=== PATIENT | male | born 2000 | race Caucasian/White ===

== ENCOUNTER 2018-08-06 09:52 | Inpatient (IN) | payer OTHER ==
[2018-08-06] MEDS ORDERED: SODIUM CHLORIDE 1,000 ML IV STA (09:59)
--- NOTE | 2018-08-06 10:10 | PDOC ---
History of Present Illness - General History Source: Patient Exam Limitations: No Limitations <Delphine Ríos - Last Filed: 08/06/18 12:09> - General History Source: Patient Exam Limitations: No Limitations <Amy Alvarado - Last Filed: 08/06/18 13:45> - General Chief Complaint: Chest Pain Stated Complaint: CHEST PAIN Time Seen by Provider: 08/06/18 09:54 - History of Present Illness Initial Comments: 08/06/18 11:05 Mr. Emanuel Metz is a 18-year-old male with past medical history significant for childhood asthma, and pilonidal cys presents to the emergency department from urgent care with chest pain and abnormal EKG. The patient reports he woke up today morning with chest pressure, describes the pain as if someone is sitting on his chest. He has been experiencing chills and sweats, mild headache , generalized malaise x 3 days, but no fevers. No cough or congestion, cough or sob, AP, n/v/d or urinary sx, rash, back pain or myalgias. He saw his PCP earlier this week, dxd with flu-like illness. Denies sick contact or travel history. Allergies: NKA Social history: No past or present use of tobacco, alcohol or recreational drug use reported. Surgical history: No surgical history reported. PCP: Dr. Sal Bonilla. (Delphine Ríos) Past History <Delphine Ríos - Last Filed: 08/06/18 12:09> <Amy Alvarado - Last Filed: 08/06/18 13:45> - Past Medical History Allergies/Adverse Reactions: Allergies Allergy/AdvReac Type Severity Reaction Status Date / Time No Known Allergies Allergy Verified 08/06/18 11:11 Home Medications: Ambulatory Orders NK [No Known Home Medication] 08/06/18 Review of Systems - Review of Systems Able to Perform ROS?: Yes <Delphine Ríos - Last Filed: 08/06/18 12:09> <Amy Alvarado - Last Filed: 08/06/18 13:45> - Review of Systems Comments:: 08/06/18 11:05 GENERAL/CONSTITUTIONAL: + Chills and diaphoresis. +malaise HEAD, EYES, EARS, NOSE AND THROAT: No change in vision or hearing. No ear pain or discharge. No sore throat or mouth pain. No difficulty swallowing. No congestion. CARDIOVASCULAR: + chest pain. No palpitations, syncope or edema. RESPIRATORY: No SOB, cough, wheezing, or hemoptysis. GASTROINTESTINAL No nausea/vomiting. No diarrhea or constipation. No bloody stools. GENITOURINARY: No hematuria, dysuria, frequency, urgency or other changes. MUSCULOSKELETAL: No joint or muscle swelling or pain. No neck or back pain. SKIN: No rash or changes in skin color or lesions. NEUROLOGIC: +headache. No dizziness, lightheadedness. No vertigo, loss of consciousness, or change in strength/sensation. No gait instability. HEMATOLOGIC/LYMPHATIC: No anemia, easy bruising/bleeding, or history of blood clots. ALLERGIC/IMMUNOLOGIC: No allergies All other systems reviewed and negative, or as documented in HPI. (Delphine Ríos) *Physical Exam <Delphine Ríos - Last Filed: 08/06/18 12:09> <Amy Alvarado - Last Filed: 08/06/18 13:45> - Vital Signs Last Vital Signs Temp Pulse Resp BP Pulse Ox 100.4 F H 92 H 12 110/63 100 08/06/18 11:04 08/06/18 11:04 08/06/18 11:04 08/06/18 11:04 08/06/18 11:04 - Physical Exam Comments: 08/06/18 11:06 General: Well appearing, awake and alert, NAD. HEENT: NCAT, PERRL, EOMI, clear conjunctiva, anicteric, moist mucus membranes, clear oropharynx, no oral lesions.. Neck: neck supple, FROM, no meningismus Resp: CTAB, normal and even respirations, no respiratory distress CVS: + Tachycardia. no murmurs,, no peripheral edema Abdomen: soft, NTND, no peritoneal signs. Back: nontender, normal inspection and ROM MSK: no edema, ROMERO x4, ROM intact. No clubbing or cyanosis. normal bulk and tone. Neuro: alert, oriented appropriately; no focal neurologic deficits Skin: + Pale and cool, diaphoretic, no rash. (Delphine Ríos) Heart Score/ECG Review <Delphine Ríos - Last Filed: 08/06/18 12:09> - ECG Impressions Normal ECG: No Non-specific ST Elevation: Yes Ischemic Changes: Yes <Amy Alvarado - Last Filed: 08/06/18 13:45> - ECG Impressions Comment:: 08/06/18 12:13 EKG normal sinus rhythm, no interval abnormalities, narrow QRS, +PA depressions diffusely when comparing with TP segment and diffuse upsloping ST segments 1mm. suggestive of acute pericarditis (Amy Alvarado) Procedures <Delphine Ríos - Last Filed: 08/06/18 12:09> - Bedside Ultrasound Bedside Ultrasound: Cardiac <Amy Alvarado - Last Filed: 08/06/18 13:45> - Bedside Ultrasound Remarks: 08/06/18 12:18 POCUS echo performed, indication includes chest pain. views obtained (PSLA, PSS , A4, SX, IVC). Findings include normal EF, no pericardial effusion, no FWMA, normal IVC with no inspiratory collapse Normal aortic root <4cm. RV<LV. Impression: no acute findings (Amy Alvarado) ED Treatment Course - LABORATORY CBC & Chemistry Diagram: 08/06/18 10:30 08/06/18 10:30 <Delphine Ríos - Last Filed: 08/06/18 12:09> - LABORATORY CBC & Chemistry Diagram: 08/06/18 10:30 08/06/18 10:30 <Amy Alvarado - Last Filed: 08/06/18 13:45> - ADDITIONAL ORDERS Additional order review: Laboratory Results 08/06/18 08/06/18 08/06/18 11:15 10:30 10:30 PT with INR 13.20 H INR 1.12 H Sodium 140 Potassium 4.1 Chloride 106 Carbon Dioxide 29 Anion Gap 6 L BUN 15 Creatinine 0.8 Creat Clearance w eGFR > 60 Random Glucose 90 Lactic Acid 0.9 Calcium 8.8 Magnesium 2.2 Total Bilirubin 0.7 AST 78 H ALT 61 Alkaline Phosphatase 88 Creatine Kinase 798 H Creatine Kinase Index 10.1 H* CK-MB (CK-2) 81.1 H Troponin I 15.10 H* B-Natriuretic Peptide 896.0 H Total Protein 7.8 Albumin 4.1 08/06/18 10:30 RBC 5.22 MCV 83.4 MCHC 33.2 RDW 13.4 MPV 7.9 Neutrophils % 83.3 H Lymphocytes % 8.3 Monocytes % 7.8 Eosinophils % 0.1 Basophils % 0.5 - RADIOLOGY Radiology Studies Ordered: Category Date Time Status CHEST PA & LAT [RAD] Stat Radiology 08/06/18 09:59 Completed - Medications Given in the ED: ED Medications Discontinued Medications Generic Name Dose Route Start Last Admin Trade Name Angel PRN Reason Stop Dose Admin Acetaminophen 1,000 mg 08/06/18 11:11 08/06/18 11:26 Ofirmev Injection - IVPB 08/06/18 11:12 1,000 mg ONCE ONE Administration Sodium Chloride 1,000 mls @ 1,000 mls/hr 08/06/18 09:59 08/06/18 11:59 Normal Saline - IV 08/06/18 10:58 1,000 mls/hr ASDIR STA Administration Sodium Chloride 1,000 ml 08/06/18 10:11 08/06/18 12:10 Normal Saline - IV 08/06/18 10:12 1,000 ml ONCE ONE Administration Medical Decision Making <Delphine Ríos - Last Filed: 08/06/18 12:09> <Amy Alvarado - Last Filed: 08/06/18 13:45> - Medical Decision Making 08/06/18 12:[address] Hernandez for admission. Case discussed with Dr. Hernandez. 08/06/18 12:09 Call placed [facility] at 11:50, waiting for a call back from Dr. Molina. Case discussed with Dr. Molina at 11:57 (Delphine Ríos) 08/06/18 11:12 DDx chest pain: ACS, PE, dissection,costochondritis, pneumonia, pleurisy, pericarditis/myocarditis, pericardial effusion. dehydration, electrolyte/ metabolic derangements. influenza, viral syndrome. Vital signs reviewed, +fever and tachycardia. laboratory results and imaging reviewed, basic labs and lytes wnl, notable for leukocytosis of 13K, normal lytes and coags. blood cultures sent. however, defer abx as most likely viral etiology. flu negative. Lactic normal, reassuring. CXR_neg for infection or edema. Cardiac panel with significantly elevated troponin to 15, elevated CK ( nonspecific), and BNP >800s, with EKG suggesting acute pericarditis; ASA administered [employer] at urgent care. EKG normal sinus rhythm, no interval abnormalities, narrow QRS, +PA depressions diffusely when comparing with TP segment and diffuse upsloping ST segments. Heart visualized in four views using phased array probe ( sub-xiphoid, Parasternal long and short, and apical). no pericardial effusion, normal EF, RV< LV, plump IVC and normal aortic root. ED course: no acute events, remained stable. Clinically improved after interventions, including 2 liters IVF and tylenol. on reeval at 12pm, chest pain free. Cardiology consultation with Dr. Nicole/[facility] for concerns of acute myopericarditis. spoke with Dr Gonzalez for consultation, agree to plan. Dispo: Dr. Hernandez called for admission Admit for acute myopericarditis.. Discussed results and management plan with pt and family member at bedside, agree with impression and plan 08/06/18 13:45 (Amy Alvarado) *DC/Admit/Observation/Transfer <Delphine Ríos - Last Filed: 08/06/18 12:09> - Discharge Dispostion Decision to Admit order: Yes <Amy Alvarado - Last Filed: 08/06/18 13:45> Diagnosis at time of Disposition: Myopericarditis - Discharge Dispostion Condition at time of disposition: Guarded - Attestations Scribe Attestion: 08/06/18 11:06 Documentation prepared by Delphine Ríos, acting as medical pathology teacher for Amy Alvarado MD. (Delphine Ríos) Physician Attestion: 08/06/18 13:13 I, Amy Alvarado MD, attest that this document has been prepared under my direction and personally reviewed by me in its entirety. I further attest, that it accurately reflects all work, treatment, procedures and medical decision -making performed by me. (Amy Alvarado)
[2018-08-06] MEDS ORDERED: SODIUM CHLORIDE 0.9% 500 ML INFUS.BAG IV ONE (10:11)
[2018-08-06 10:46] LABS: BASO % 0.5 % (0-2.0); EOS % 0.1 % (0-4.5); HEMATOCRIT 43.6 % (35.4-49); HEMOGLOBIN 14.5 GM/dL (11.7-16.9); LYMPH % 8.3 % (8-40); MCH 27.7 pg (25.7-33.7); MCHC 33.2 g/dl (32.0-35.9); MEAN CELL VOLUME 83.4 fl (80-96); MEAN PLT VOLUME 7.9 fl (7.5-11.1); MONO % 7.8 % (3.8-10.2); NEUT % 83.3 % (42.8-82.8); PLATELET COUNT 245 K/MM3 (134-434); RBC 5.22 M/mm3 (4.00-5.60); RDW 13.4 % (11.9-15.9); WHITE BLOOD COUNT 13.8 K/mm3 (4.0-10.0)
[2018-08-06 11:00] LABS: INR 1.12 (0.83-1.09); PROTHROMBIN TIME (PATIENT) 13.2 SEC (9.7-13.0)
[2018-08-06] MEDS ORDERED: ACETAMINOPHEN 1000 MG/100 ML VIAL (NON FORMULARY) IVPB ONE (11:11)
[2018-08-06] MEDS ORDERED: ACETAMINOPHEN INJECTION 100 ML IVPB ONE (11:21)
[2018-08-06 11:31] LABS: ALBUMIN 4.1 g/dl (3.4-5.0); ALK PHOS 88 U/L (45-117); ANION GAP 6 MMOL/L (8-16); BILIRUBIN,TOTAL 0.7 mg/dL (0.2-1); BLOOD UREA NITROGEN 15 mg/dL (7-18); CALCIUM 8.8 mg/dL (8.5-10.1); CHLORIDE 106 mmol/L (98-107); CO2 29 mmol/L (21-32); CREATININE 0.8 mg/dL (0.55-1.3); GLUCOSE,RANDOM 90 mg/dL (74-106); MAGNESIUM 2.2 mg/dL (1.8-2.4); POTASSIUM 4.1 mmol/L (3.5-5.1); SGOT/AST 78 U/L (15-37); SGPT/ALT 61 U/L (13-61); SODIUM 140 mmol/L (136-145); TOT PROT 7.8 g/dl (6.4-8.2)
--- NOTE | 2018-08-06 14:27 | HP ---
Admitting History and Physical - Primary Care Physician PCP: Sal Bonilla - Admission Chief Complaint: I had chest pain History of Present Illness: Mr Metz is a very pleasant 18 year old male who comes in with chest pain. He says he has been feeling fine and is without complaint until this morning around 12:30am. He says he was working on something and fell asleep and woke up with chest pain. He says it was a pressure like pain that was band like in distribution. At first it was a 4/10 but it increased to 10/10. He says it did not radiate. It was a pressure like pain and it was constant. Nothing relieved or exacerbated the pain, positioning did not affect it. Since it did not go away he presented to urgent care, an EKG was performed and he was sent here for EKG changes. Currently he says the pain resolved after aspirin and nitroglycerin. He says he was diaphoretic over the past two days. He denies fevers, chills, lightheadedness, dizziness, passing out, palpitations, fluttering, shortness of breath, coughing, abdominal pain, nausea, vomiting, diarrhea, constipation, or swelling. He says his boss had a cold 2 weeks ago but he does not feel like he caught it. He did not have injury to the area. History Source: Patient Limitations to Obtaining History: No Limitations - Past Medical History Additional Past Medical History: No past medical history - Past Surgical History Past Surgical History: Yes: None - Smoking History Smoking history: Never smoked Have you smoked in the past 12 months: No - Alcohol/Substance Use Hx Alcohol Use: No History of Substance Use: reports: None - Social History Usual Living Arrangement: Yes: With Parent ADL: Independent History of Recent Travel: No Home Medications - Allergies Allergies/Adverse Reactions: Allergies Allergy/AdvReac Type Severity Reaction Status Date / Time No Known Allergies Allergy Verified 08/06/18 11:11 - Home Medications Home Medications: Ambulatory Orders NK [No Known Home Medication] 08/06/18 Family Disease History - Family Disease History Other Family History: aunt: breast cancer Review of Systems Findings/Remarks: Full review of systems obtained, as per HPI and otherwise negative. Physical Examination Vital Signs: Vital Signs Temperature 38.0 C H 08/06/18 11:04 Pulse Rate 92 H 08/06/18 11:04 Respiratory Rate 12 08/06/18 11:04 Blood Pressure 110/63 08/06/18 11:04 O2 Sat by Pulse Oximetry (%) 100 08/06/18 11:04 Constitutional: Yes: Well Nourished, No Distress, Calm Eyes: Yes: Conjunctiva Clear, EOM Intact, PERRL HENT: Yes: Atraumatic, Normocephalic Cardiovascular: Yes: Regular Rate and Rhythm. No: Gallop, Murmur, Rub Respiratory: Yes: Regular, CTA Bilaterally. No: Rales, Rhonchi, Wheezes Gastrointestinal: Yes: Normal Bowel Sounds, Soft. No: Distention, Tenderness Extremities: Yes: WNL Edema: No Labs: CBC, BMP 08/06/18 10:30 08/06/18 10:30 Imaging - Results Chest X-ray: Report Reviewed, Image Reviewed EKG: Image Reviewed Problem List - Problems (1) Myopericarditis Assessment/Plan: -admit to telemetry -per ER attending, bedside ECHO showed no effusion -will need official ECHO, ordered -EKG c/w pericarditis -troponin of 15 -cardiac enzymes x3 to monitor trend -cardiology consulted and will see -will place on aspirin 650mg q8h and colchicine 0.6mg bid (use aspirin secondary to elevated troponin) -will obtain sexual history and consent for HIV when able to have some privacy with patient Code(s): I31.9 - DISEASE OF PERICARDIUM, UNSPECIFIED (2) Fever Assessment/Plan: -most likely viral -however could be inflammatory with pericarditis -urinalysis ordered -blood and urine cultures ordered -hydration Code(s): R50.9 - FEVER, UNSPECIFIED (3) Leukocytosis Assessment/Plan: -recheck in am -hydration -monitor Code(s): D72.829 - ELEVATED WHITE BLOOD CELL COUNT, UNSPECIFIED
[2018-08-06] MEDS ORDERED: COLCHICINE 0.6 MG TABLET (FP) ONE (15:07)
[2018-08-06] MEDS ORDERED: ASPIRIN 325 MG ENTERIC COATED TABLET (FP) ONE (15:07)
--- NOTE | 2018-08-06 15:17 | EKG ---
Test Reason : Blood Pressure : / mmHG Vent. Rate : 094 BPM Atrial Rate : 094 BPM P-R Int : 146 ms QRS Dur : 084 ms QT Int : 340 ms P-R-T Axes : 044 068 026 degrees QTc Int : 425 ms NORMAL SINUS RHYTHM ST ELEVATION, CONSIDER EARLY REPOLARIZATION, PERICARDITIS, OR INJURY ABNORMAL ECG NO PREVIOUS ECGS AVAILABLE Confirmed by JOI SANCHEZ MD ([id number]) on 08/06/2018 3:16:35 PM Referred By: Confirmed By:JOI SANCHEZ MD
[2018-08-06] MEDS: COLCHICINE 0.6 MG TABLET (FP) PO SCH ×2 (15:19→21:06)
[2018-08-06] MEDS: SODIUM CHLORIDE 1,000 ML IV SCH (15:19)
[2018-08-06] MEDS: ASPIRIN 325 MG ENTERIC COATED TABLET (FP) PO SCH ×2 (15:19→21:06)
--- NOTE | 2018-08-06 16:31 | ECHO ---
Name: GURMEET JUARES Exam:Adult Echocardiogram Study Date: 08/06/2018 02:58 PM Age: 18 yrs Reason For Study: Chest pain Height: 69 in Weight: 190 lb BSA: 2.0 m2 MMode/2D Measurements & Calculations IVSd: 0.90 cm Ao root diam: 2.9 cm LVIDd: 4.7 cm LA dimension: 3.1 cm LVIDs: 3.0 cm ACS: 1.8 cm LVPWd: 0.86 cm IVSs: 1.2 cm LVPWs: 1.1 cm EDV(Teich): 100.2 ml ESV(Teich): 35.9 ml Doppler Measurements & Calculations MV E max herb: 86.9 cm/sec Ao V2 max: 104.7 cm/sec MV A max herb: 57.0 cm/sec Ao max P.4 mmHg MV E/A: 1.5 Ao V2 mean: 79.3 cm/sec Ao mean P.8 mmHg Ao V2 VTI: 20.9 cm MR max herb: 399.6 cm/sec TR max herb: 262.7 cm/sec MR max P.0 mmHg TR max P.7 mmHg Med Peak E' Herb: 8.9 cm/sec Med E/e': 9.8 Lat Peak E' Herb: 12.3 cm/sec Lat E/e': 7.1 Procedure A complete two-dimensional transthoracic echocardiogram was performed (2D, M-mode, Doppler and color flow Doppler). Left Ventricle The left ventricular size, thickness and function are normal. The left ventricular ejection fraction is normal. Left Ventricular Filling pattern is normal for age. The left ventricular wall motion is dean l. Right Ventricle The right ventricle is normal in size and function. Atria Normal left and right atrial size and function. Mitral Valve There is mild mitral valve thickening. There is no mitral valve stenosis. There is moderate mitral regurgitation. Tricuspid Valve There is mild tricuspid valve thickening. There is no tricuspid stenosis. There is trace tricuspid regurgitation. Right ventricular systolic pressure is elevated at 30-40mmHg. Aortic Valve The aortic valve is normal in structure and function. No hemodynamically significant valvular aortic stenosis. No aortic regurgitation is present. Pulmonic Valve The pulmonic valve is not well visualized. There is no pulmonic valvular stenosis. There is no pulmon ic valvular regurgitation. Interpretation Summary A complete two-dimensional transthoracic echocardiogram was performed (2D, M-mode, Doppler and color flow Doppler). The left ventricular size, thickness and function are normal The left ventricular ejection fraction is normal. The left ventricular wall motion is normal. There is moderate mitral regurgitation. Left Ventricular Filling pattern is normal for age. There is trace tricuspid regurgitation. Right ventricular systolic pressure is elevated at 30-40mmHg. MD Ottoniel Wood 08/06/2018 04:31 PM
--- NOTE | 2018-08-06 17:04 | CON.CARD ---
Cardiology Consult (text) - Consultation Consultation Note: cc: cp hpi: 18 m no sig pmhx here with cp. Past few days with flu sxs then last night had chest tightness across chest and this AM came to urgent care and then sent to ER. No sob palps dizzy loc pnd othopnea le edema. CP better now. pmh: per hpi psh: pilonidal cyst removal social: no tob fam: no premature cad, scd ros: per hpi; no nvd, fever, vision changes gib hematuria dysuria meds: none pe: Vital Signs Period Temp Pulse Resp BP Sys/Posey Pulse Ox Last 24 Hr 100.4 F-100.4 F 92 12 110/63 100 nad no jvd rrr s1s2 no mrg cta bl nl eff aaox3 no le e/c/c abd nt nd pos bs no jaundice diaphoresis pos dp pt no carotid bruits Laboratory Last Values WBC 13.8 K/mm3 (4.0-10.0) H 08/06/18 10:30 RBC 5.22 M/mm3 (4.00-5.60) 08/06/18 10:30 Hgb 14.5 GM/dL (11.7-16.9) 08/06/18 10:30 Hct 43.6 % (35.4-49) 08/06/18 10:30 MCV 83.4 fl (80-96) 08/06/18 10:30 MCH 27.7 pg (25.7-33.7) 08/06/18 10:30 MCHC 33.2 g/dl (32.0-35.9) 08/06/18 10:30 RDW 13.4 % (11.9-15.9) 08/06/18 10:30 Plt Count 245 K/MM3 (134-434) 08/06/18 10:30 MPV 7.9 fl (7.5-11.1) 08/06/18 10:30 Absolute Neuts (auto) 11.5 K/mm3 (1.5-8.0) H 08/06/18 10:30 Neutrophils % 83.3 % (42.8-82.8) H 08/06/18 10:30 Lymphocytes % 8.3 % (8-40) 08/06/18 10:30 Monocytes % 7.8 % (3.8-10.2) 08/06/18 10:30 Eosinophils % 0.1 % (0-4.5) 08/06/18 10:30 Basophils % 0.5 % (0-2.0) 08/06/18 10:30 Nucleated RBC % 0 % (0-0) 08/06/18 10:30 PT with INR 13.20 SEC (9.7-13.0) H 08/06/18 10:30 INR 1.12 (0.83-1.09) H 08/06/18 10:30 Sodium 140 mmol/L (136-145) 08/06/18 10:30 Potassium 4.1 mmol/L (3.5-5.1) 08/06/18 10:30 Chloride 106 mmol/L (98-107) 08/06/18 10:30 Carbon Dioxide 29 mmol/L (21-32) 08/06/18 10:30 Anion Gap 6 MMOL/L (8-16) L 08/06/18 10:30 BUN 15 mg/dL (7-18) 08/06/18 10:30 Creatinine 0.8 mg/dL (0.55-1.3) 08/06/18 10:30 Creat Clearance w eGFR > 60 (>60) 08/06/18 10:30 Random Glucose 90 mg/dL (74-106) 08/06/18 10:30 Lactic Acid 0.9 mmol/L (0.4-2.0) 08/06/18 11:15 Calcium 8.8 mg/dL (8.5-10.1) 08/06/18 10:30 Magnesium 2.2 mg/dL (1.8-2.4) 08/06/18 10:30 Total Bilirubin 0.7 mg/dL (0.2-1) 08/06/18 10:30 AST 78 U/L (15-37) H 08/06/18 10:30 ALT 61 U/L (13-61) 08/06/18 10:30 Alkaline Phosphatase 88 U/L (45-117) 08/06/18 10:30 Creatine Kinase 798 IU/L (26-308) H 08/06/18 10:30 Creatine Kinase Index 10.1 % (0.0-5.0) H* 08/06/18 10:30 CK-MB (CK-2) 81.1 ng/mL (0.5-3.6) H 08/06/18 10:30 Troponin I 15.10 ng/ml (0.00-0.05) H* 08/06/18 10:30 B-Natriuretic Peptide 896.0 pg/ml (5-125) H 08/06/18 10:30 Total Protein 7.8 g/dl (6.4-8.2) 08/06/18 10:30 Albumin 4.1 g/dl (3.4-5.0) 08/06/18 10:30 cxr: clear lungs ecg: sr, nl intervals, diffuse st elevations, pr depressions, also pr elevation avr a/p: 18 m no sig pmhx here with cp. cp, myopericarditis: -ecg c/w pericarditis, also with elevated trop c/w myocarditis, likely 2/2 URI -cont asa, colchicine -check echo -tele monitor -trend trops
[2018-08-06 20:53] VITALS: BMI 29.5
[2018-08-07] MEDS: ASPIRIN 325 MG ENTERIC COATED TABLET (FP) PO SCH ×4 (05:43→22:12)
[2018-08-07 07:00] LABS: HEMATOCRIT 38.9 % (35.4-49); HEMOGLOBIN 12.8 GM/dL (11.7-16.9); MCH 27.5 pg (25.7-33.7); MCHC 32.9 g/dl (32.0-35.9); MEAN CELL VOLUME 83.4 fl (80-96); PLATELET COUNT 215 K/MM3 (134-434); RBC 4.66 M/mm3 (4.00-5.60); RDW 13.5 % (11.9-15.9); WHITE BLOOD COUNT 11.2 K/mm3 (4.0-10.0)
[2018-08-07 07:26] LABS: ANION GAP 7 MMOL/L (8-16); BLOOD UREA NITROGEN 11 mg/dL (7-18); CALCIUM 8.3 mg/dL (8.5-10.1); CHLORIDE 110 mmol/L (98-107); CO2 25 mmol/L (21-32); CREATININE 0.6 mg/dL (0.55-1.3); GLUCOSE,RANDOM 87 mg/dL (74-106); MAGNESIUM 2.2 mg/dL (1.8-2.4); PHOSPHOROUS 3.5 mg/dL (2.5-4.9); POTASSIUM 3.9 mmol/L (3.5-5.1); SODIUM 142 mmol/L (136-145)
[2018-08-07] MEDS: PANTOPRAZOLE 40 MG TABLET (FP) PO SCH (09:46)
[2018-08-07] MEDS: COLCHICINE 0.6 MG TABLET (FP) PO SCH ×2 (09:46→22:12)
--- NOTE | 2018-08-07 10:50 | PN ---
Progress Note (short form) - Note Progress Note: s: no cp sob palps dizzy, low grade fever overnight pe: Vital Signs Period Temp Pulse Resp BP Sys/Posey Pulse Ox Last 24 Hr 98.4 F-100.8 F 88-124 12-20 102-122/59-70 98-100 nad no jvd rrr s1s2 no mrg cta bl nl eff aaox3 no le e/c/c abd nt nd pos bs no jaundice diaphoresis Current Medications Generic Name Dose Route Start Last Admin Trade Name Freq PRN Reason Stop Dose Admin Aspirin 650 mg 08/06/18 14:15 08/07/18 05:43 Ecotrin - PO Not Given Q8H RADHA Colchicine 0.6 mg 08/06/18 14:15 08/07/18 09:46 Colcrys - PO 0.6 mg BID RADHA Administration Sodium Chloride 1,000 mls @ 75 mls/hr 08/06/18 14:30 08/06/18 15:19 Normal Saline - IV 75 mls/hr ASDIR RADHA Administration Pantoprazole Sodium 40 mg 08/07/18 10:00 08/07/18 09:46 Protonix - PO 40 mg DAILY RADHA Administration CBC, BMP 08/07/18 06:00 08/07/18 06:00 echo 07/2018: nl lv/rv, mod mr, rvsp 30-40 tele: sr, sinus tachy, 4 beats nsvt cxr: clear lungs ecg: sr, nl intervals, diffuse st elevations, pr depressions, also pr elevation avr a/p: 18 m no sig pmhx here with cp. cp, myopericarditis: -ecg c/w pericarditis, also with elevated trop c/w myocarditis, likely 2/2 viral syndrome -cont asa, colchicine -echo with normal LV, no effusion -trops trending down -infectious w/u ongoing. likely ready for dc tomorrow from cardiac pov
--- NOTE | 2018-08-07 12:28 | PN ---
Progress Note, Physician Chief Complaint: Mr Metz says his pain is almost completely resolved. Denies sob and n/v. - Current Medication List Current Medications: Active Medications Aspirin (Ecotrin -) 650 mg PO Q8H [facility] Last Admin: 08/07/18 05:43 Dose: Not Given Colchicine (Colcrys -) 0.6 mg PO BID [facility] Last Admin: 08/07/18 09:46 Dose: 0.6 mg Sodium Chloride (Normal Saline -) 1,000 mls @ 75 mls/hr IV ASDIR [facility] Last Admin: 08/06/18 15:19 Dose: 75 mls/hr Pantoprazole Sodium (Protonix -) 40 mg PO DAILY [facility] Last Admin: 08/07/18 09:46 Dose: 40 mg - Objective Vital Signs: Vital Signs Temperature 37.0 C 08/07/18 09:51 Pulse Rate 88 08/07/18 09:51 Respiratory Rate 18 08/07/18 09:51 Blood Pressure 121/70 08/07/18 09:51 O2 Sat by Pulse Oximetry (%) 98 08/07/18 09:00 Constitutional: Yes: Well Nourished, No Distress, Calm Cardiovascular: Yes: Regular Rate and Rhythm. No: Gallop, Murmur, Rub Respiratory: Yes: Regular, CTA Bilaterally. No: Rales, Rhonchi, Wheezes Gastrointestinal: Yes: Normal Bowel Sounds, Soft. No: Distention, Tenderness Extremities: Yes: WNL Edema: No Labs: CBC, BMP 08/07/18 06:00 08/07/18 06:00 INR, PTT INR 1.12 (0.83-1.09) H 08/06/18 10:30 Problem List - Problems (1) Myopericarditis Code(s): I31.9 - DISEASE OF PERICARDIUM, UNSPECIFIED (2) Fever Code(s): R50.9 - FEVER, UNSPECIFIED (3) Leukocytosis Code(s): D72.829 - ELEVATED WHITE BLOOD CELL COUNT, UNSPECIFIED Assessment/Plan (1) Myopericarditis Assessment/Plan: -continue aspirin and colchicine -pain almost resolved -case d/w cardiology -patient states he has zero sexual partners and has never used intravenous drugs , zero risk for HIV exposure Code(s): I31.9 - DISEASE OF PERICARDIUM, UNSPECIFIED (2) Fever Assessment/Plan: -resolved Code(s): R50.9 - FEVER, UNSPECIFIED (3) Leukocytosis Assessment/Plan: -improving Code(s): D72.829 - ELEVATED WHITE BLOOD CELL COUNT, UNSPECIFIED Dispo -will allow blood cultures to grow for 48 hours -if NGTD tomorrow and pain free, can discharge home
[2018-08-07] MEDS: SODIUM CHLORIDE 1,000 ML IV SCH (14:04)
[2018-08-07 14:25] LABS: URINE APPEARANCE CLEAR; URINE BILIRUBIN NEGATIVE (<2.0 mg/dL); URINE COLOR YELLOW; URINE GLUCOSE (UA) NEGATIVE (NEGATIVE); URINE KETONE 1+ (NEGATIVE); URINE LEUK ESTERASE NEGATIVE (NEGATIVE); URINE NITRITE NEGATIVE (NEGATIVE); URINE PROTEIN NEGATIVE (NEGATIVE); URINE UROBILINOGEN NEGATIVE mg/dL (0.2-1.0)
[2018-08-08 06:27] LABS: BASO % 0.7 % (0-2.0); EOS % 2.9 % (0-4.5); HEMATOCRIT 37.8 % (35.4-49); HEMOGLOBIN 12.6 GM/dL (11.7-16.9); LYMPH % 37.5 % (8-40); MCH 27.6 pg (25.7-33.7); MCHC 33.3 g/dl (32.0-35.9); MEAN CELL VOLUME 83.1 fl (80-96); MEAN PLT VOLUME 7.9 fl (7.5-11.1); MONO % 8.8 % (3.8-10.2); NEUT % 50.1 % (42.8-82.8); PLATELET COUNT 220 K/MM3 (134-434); RBC 4.55 M/mm3 (4.00-5.60); RDW 13.2 % (11.9-15.9); WHITE BLOOD COUNT 8.3 K/mm3 (4.0-10.0)
[2018-08-08] MEDS: ASPIRIN 325 MG ENTERIC COATED TABLET (FP) PO SCH (06:40)
[2018-08-08 07:40] LABS: ANION GAP 8 MMOL/L (8-16); BLOOD UREA NITROGEN 12 mg/dL (7-18); CALCIUM 8.2 mg/dL (8.5-10.1); CHLORIDE 108 mmol/L (98-107); CO2 25 mmol/L (21-32); CREATININE 0.7 mg/dL (0.55-1.3); GLUCOSE,RANDOM 80 mg/dL (74-106); MAGNESIUM 2.1 mg/dL (1.8-2.4); PHOSPHOROUS 3.6 mg/dL (2.5-4.9); POTASSIUM 4.1 mmol/L (3.5-5.1); SODIUM 141 mmol/L (136-145)
[2018-08-08] MEDS: COLCHICINE 0.6 MG TABLET (FP) PO SCH (09:17)
[2018-08-08] MEDS: PANTOPRAZOLE 40 MG TABLET (FP) PO SCH (09:17)
[2018-08-08 10:46] VITALS: BP 125/83; PULSE 83; TEMP 97.9
--- NOTE | 2018-08-08 11:15 | PN ---
Progress Note (short form) - Note Progress Note: s: no cp sob palps dizzy pe: Vital Signs Period Temp Pulse Resp BP Sys/Posey Pulse Ox Last 24 Hr 97.6 F-98.7 F 80-90 16-18 110-129/65-83 98-99 nad no jvd rrr s1s2 no mrg cta bl nl eff aaox3 no le e/c/c abd nt nd pos bs no jaundice diaphoresis Current Medications Generic Name Dose Route Start Last Admin Trade Name Freq PRN Reason Stop Dose Admin Aspirin 650 mg 08/06/18 14:15 08/08/18 06:40 Ecotrin - PO 650 mg Q8H RADHA Administration Colchicine 0.6 mg 08/06/18 14:15 08/08/18 09:17 Colcrys - PO 0.6 mg BID RADHA Administration Sodium Chloride 1,000 mls @ 75 mls/hr 08/06/18 14:30 08/07/18 14:04 Normal Saline - IV 75 mls/hr ASDIR RADHA Administration Pantoprazole Sodium 40 mg 08/07/18 10:00 08/08/18 09:17 Protonix - PO 40 mg DAILY RADHA Administration CBC, BMP 08/08/18 06:00 08/08/18 06:00 echo 07/2018: nl lv/rv, mod mr, rvsp 30-40 tele: sr, sinus tachy, 4 beats nsvt cxr: clear lungs ecg: sr, nl intervals, diffuse st elevations, pr depressions, also pr elevation avr a/p: 18 m no sig pmhx here with cp. cp, myopericarditis: -ecg c/w pericarditis, also with elevated trop c/w myocarditis, likely 2/2 viral syndrome -cont asa, colchicine -echo with normal LV, no effusion -trops trending down -cardiac [place] ok for dc on current meds, outpt f/u 2 weeks
--- NOTE | 2018-08-08 11:42 | DS ---
Physical Examination Vital Signs: Vital Signs Temperature 36.6 C 08/08/18 10:41 Pulse Rate 83 08/08/18 10:41 Respiratory Rate 18 08/08/18 10:41 Blood Pressure 125/83 08/08/18 10:41 O2 Sat by Pulse Oximetry (%) 99 08/08/18 10:41 Constitutional: Yes: Well Nourished, No Distress, Calm Cardiovascular: Yes: Regular Rate and Rhythm. No: Gallop, Murmur, Rub Respiratory: Yes: Regular, CTA Bilaterally. No: Rales, Rhonchi, Wheezes Gastrointestinal: Yes: Normal Bowel Sounds, Soft. No: Distention, Tenderness Extremities: Yes: WNL Edema: No Labs: CBC, BMP 08/08/18 06:00 08/08/18 06:00 Discharge Summary Reason For Visit: PERICARDITIS, MYOCARDITIS Current Active Problems Fever (Acute) Leukocytosis (Acute) Myopericarditis (Acute) Hospital Course: (1) Myopericarditis Code(s): I31.9 - DISEASE OF PERICARDIUM, UNSPECIFIED (2) Fever Code(s): R50.9 - FEVER, UNSPECIFIED (3) Leukocytosis Code(s): D72.829 - ELEVATED WHITE BLOOD CELL COUNT, UNSPECIFIED Mr Metz is a very pleasant 18 year old male who comes in with myopericarditis. He was admitted to telemetry and seen by cardiology. He was started on aspirin 650mg bid and colchicine 0.6mg bid. He improved significantly after this. He was kept in the hospital for 48 hours secondary to his being febrile with a leukocytosis, however cultures are currently NGTD. He also had a significantly elevated troponin but this has trended down. He denies sexual interactions or IVDU so deferred HIV testing at this time since no risk factors, however this should also be addressed with his PCP to confirm. He is currently pain free and stable for discharge home. He is to follow up with his PCP in 1 week and cardiology in 2 weeks, he understood the importance of this close follow up and confirmed. A work note was given as well. He is safe for discharge home. 34 minutes spent in preparation of this discharge Condition: Good - Instructions Diet, Activity, Other Instructions: resume previous diet and activity. No heavy lifting for 2 weeks until cleared by cardiology. Take aspirin 325mg 2 tablets three times a day with food. Referrals: Kam Najera MD [Staff Physician] - 2 Weeks Sal Bonilla MD [Primary Care Provider] - 1 Week Disposition: HOME - Home Medications Comprehensive Discharge Medication List: Ambulatory Orders Aspirin Coated [Ecotrin -] 650 mg PO Q8H tablet. 08/08/18 Colchicine [Colcrys -] 0.6 mg PO BID #60 tablet 08/08/18 Pantoprazole Sodium [Protonix -] 40 mg PO DAILY #30 tablet.ec 08/08/18
== END 2018-08-08 13:16 | disposition home or self-care (01) | DRG 316 ==
LOC: JER 09:52 → JERBED 11:21 → J4S 20:39
PROVIDERS: ADMIT Internal Medicine; ATTEND Internal Medicine
DX: I31.9 Disease of pericardium, unspecified (principal); J45.909 Unspecified asthma, uncomplicated; D72.829 Elevated white blood cell count, unspecified
CPT/HCPCS: 36415; 71045-TC-FY; 71046-TC-FY; 80048; 80053; 81003; 82550; 82553; 83605; 83735; 83880; 84100; 84484; 85025; 85027; 85610; 85651; 86140; 87040; 87086; 87804; 93005; 93010; 93306-TC; 99281-25; J0131; J7030